=== PATIENT | female | born 2000 | race Caucasian/White ===

== ENCOUNTER 2022-03-20 19:39 | Emergency (ER) | payer OTHER ==
[2022-03-20] MEDS ORDERED: DIPH,PERTUS(ACELL)TETVAC-LF 0.5 ML VIAL IM ONE (19:48)
[2022-03-20] MEDS ORDERED: LIDOCAINE 1% INJ 10MG/ML (30 ML VIAL-PF) SQ ONE (19:48)
--- NOTE | 2022-03-20 19:50 | ED ---
Wound/Laceration HPI - General Chief Complaint: Wound/Laceration Stated Complaint: [facility] LT hand lac Time Seen by Provider: 03/20/22 19:46 Source: patient, RN notes reviewed - History of Present Illness Initial Comments: Patient is a 21-year-old female presenting to the emergency room with left side of her left hand which occurred while she was at work is attempting to add a loop to her belt when the knife slipped slicing her hand. She reports that her tetanus shot is not believed to be up-to-date. She denies any range of motion impairment or concerns for wound contamination. She has past medical history significant for asthma and migraines. - Related Data Previous Rx's Medication Instructions Recorded Cephalexin [Keflex] 500 mg PO Q12HR 5 Days #10 cap 03/20/22 Allergies Allergy/AdvReac Type Severity Reaction Status Date / Time codeine Allergy Rash/Hives Verified 07/29/21 20:12 Review of Systems ROS Statement: Those systems with pertinent positive or pertinent negative responses have been documented in the HPI. ROS Other: All systems not noted in ROS Statement are negative. Past Medical History Past Medical History: Asthma Additional Past Medical History / Comment(s): Migraines History of Any Multi-Drug Resistant Organisms: None Reported Past Surgical History: No Surgical Hx Reported Past Psychological History: Depression Smoking Status: Never smoker Past Alcohol Use History: None Reported Past Drug Use History: None Reported General Exam General appearance: alert, in no apparent distress Head exam: Present: atraumatic, normocephalic, normal inspection Eye exam: Present: normal appearance, PERRL, EOMI. Absent: scleral icterus, conjunctival injection, periorbital swelling ENT exam: Present: normal exam, mucous membranes moist Neck exam: Present: normal inspection Respiratory exam: Absent: respiratory distress, accessory muscle use Cardiovascular Exam: Present: regular rate GI/Abdominal exam: Absent: distended Left Hand Wrist exam: Present: full ROM, tenderness, laceration (lateral aspect mid hand 2 cm ). Absent: ecchymosis, amputation, nail avulsion Vascular: Absent: vascular compromise Back exam: Present: normal inspection Neurological exam: Present: alert, oriented X3, CN II-XII intact Psychiatric exam: Present: normal affect, normal mood Skin exam: Present: warm, dry, intact, normal color. Absent: rash Course Vital Signs 03/20/22 03/20/22 19:47 19:52 Temperature 98.2 F 98.2 F Pulse Rate 89 68 Respiratory 16 16 Rate Blood Pressure 136/88 136/88 O2 Sat by Pulse 98 99 Oximetry Procedures - Laceration Laceration #1 Consent Obtained: verbal consent Indication: laceration Site: hand (left lateral ) Size (cm): 2 Description: linear Depth: simple, single layer Anesthesia Technique: local infiltration Pre-repair: wound explored, irrigated extensively Type of Sutures: nylon Size of Sutures: 4-0 Number of Sutures: 5 Technique: simple, interrupted Patient Tolerated Procedure: well, no complications Medical Decision Making - Medical Decision Making 21-year-old female presenting to the ER after accidentally cutting the lateral aspect of her left hand with a negative. Tetanus not up-to-date will update tetanus. Concern for contamination to knife will need prophylactic antibiotics, no indication for IV antibiotics. No indication for diagnostic imaging or laboratory studies. Laceration closed with sutures without complication. Patient tolerated well. Wound care reviewed. Will discharge home in stable condition with follow-up with her primary care provider for suture removal in 5-7 days. Case discussed with Dr. Aguayo. Disposition Clinical Impression: Laceration Disposition: HOME SELF-CARE Condition: Stable Instructions (If sedation given, give patient instructions): Care For Your Stitches (ED), Laceration (ED) Additional Instructions: Please keep wound clean and dry. Cover if at work or known contamination will occur. Please complete course of antibiotic as prescribed. Monitor for signs and symptoms of infection and seek medical attention as appropriate if symptoms occur. Please follow-up with your primary care provider for suture removal in 5- 7 days. Please return to the Emergency Department if symptoms worsen or any other concerns. Prescriptions: Cephalexin [Keflex] 500 mg PO Q12HR 5 Days #10 cap Is patient prescribed a controlled substance at d/c from ED?: No Referrals: Robin Mckenzie MD [Primary Care Provider] - 1-2 days Time of Disposition: 20:18
[2022-03-20 19:51] VITALS: BP 136/88; RESP 16; TEMP 98.2
[2022-03-20 19:52] VITALS: PULSE 68
[2022-03-20] MEDS ORDERED: ONDANSETRON 4 MG TAB PO STA (20:26)
== END 2022-03-20 20:28 | disposition home or self-care (01) ==
LOC: EC 19:39
DX: S61.412A Laceration without foreign body of left hand, initial encounter (principal); J45.909 Unspecified asthma, uncomplicated; F32.A Depression, unspecified; Z88.5 Allergy status to narcotic agent; X58.XXXA Exposure to other specified factors, initial encounter
CPT/HCPCS: 99282; 96372; 99283; 90715; 90471; 12001; J2001

== ENCOUNTER 2024-04-11 17:54 | Emergency (ER) | payer OTHER ==
--- NOTE | 2024-04-11 18:44 | XR ---
EXAMINATION TYPE: XR lumbar spine 2 or 3V DATE OF EXAM: 04/11/2024 CLINICAL HISTORY: Back pain with radiculopathy TECHNIQUE: Frontal and lateral images of the lumbar spine are obtained. COMPARISON: None FINDINGS: There are 5 lumbar type vertebral bodies identified. The lumbar spine shows satisfactory alignment without evidence of acute fracture or dislocation. Vertebral body heights and disk space he ights are within normal limits. The overlying soft tissue appears unremarkable. IMPRESSION: No acute findings are seen in the lumbar spine. [facility], , 04/11/2024 6:42 PM
--- NOTE | 2024-04-11 18:45 | XR ---
EXAMINATION TYPE: XR thoracic spine 2V DATE OF EXAM: 04/11/2024 CLINICAL HISTORY: Back pain with radiculopathy TECHNIQUE: Frontal, lateral, and swimmer's view of thoracic spine are obtained. COMPARISON: None. FINDINGS: Thoracic spine show satisfactory alignment without evidence of acute fracture or dislocatio n. Vertebral body heights and disc space heights are preserved. Visualized ribs are intact bilateral ly. IMPRESSION: No acute findings are seen in the thoracic spine. [facility], , 04/11/2024 6:43 PM
--- NOTE | 2024-04-11 18:48 | ED ---
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 Patient describes pain as sharp and constant that is worse with movement and sitting. Patient endorses associated nausea. Denies saddle paresthesia or urinary incontinence/retention. MD Complaint: back pain Onset/Timin -: minutes(s) Similar Symptoms Previously: No Place: work Radiation: buttocks, right leg Severity scale (1-10): 7 Quality: sharp Consistency: constant Improves With: immobilization Worsens With: movement, sitting upright Context: while lifting, bending Associated Symptoms: nausea/vomiting - Related Data Previous Rx's Medication Instructions Recorded Cephalexin [Keflex] 500 mg PO Q12HR 5 Days #10 cap 03/20/22 Cyclobenzaprine [Flexeril] 10 mg PO TID PRN #15 tab 04/11/24 Ibuprofen [Motrin] 800 mg PO Q8H PRN #30 tab 04/11/24 Allergies Allergy/AdvReac Type Severity Reaction Status Date / Time codeine Allergy Rash/Hives Verified 04/11/24 18:05 Review of Systems ROS Statement: Those systems with pertinent positive or pertinent negative responses have been documented in the HPI. ROS Other: All systems not noted in ROS Statement are negative. Past Medical History Past Medical History: Asthma Additional Past Medical History / Comment(s): Migraines History of Any Multi-Drug Resistant Organisms: None Reported Past Surgical History: No Surgical Hx Reported Past Psychological History: Depression Smoking Status: Never smoker Past Alcohol Use History: Rare Past Drug Use History: None Reported General Exam Limitations: no limitations General appearance: alert, in no apparent distress Head exam: Present: atraumatic, normocephalic, normal inspection Eye exam: Present: normal appearance, PERRL, EOMI. Absent: scleral icterus, conjunctival injection, periorbital swelling ENT exam: Present: normal exam, mucous membranes moist Neck exam: Present: normal inspection. Absent: tenderness, meningismus, lymphadenopathy Respiratory exam: Present: normal lung sounds bilaterally. Absent: respiratory distress, wheezes, rales, rhonchi, stridor Cardiovascular Exam: Present: regular rate, normal rhythm, normal heart sounds. Absent: systolic murmur, diastolic murmur, rubs, gallop, clicks GI/Abdominal exam: Present: soft, normal bowel sounds. Absent: distended, tenderness, guarding, rebound, rigid Extremities exam: Present: normal inspection, full ROM, normal capillary refill, other (RLE neuro vascular intact motor function intact). Absent: pedal edema, joint swelling, calf tenderness Back exam: Present: normal inspection, paraspinal tenderness (Positive right paralumbar tenderness and muscle spasm). Absent: vertebral tenderness Neurological exam: Present: alert, oriented X3, CN II-XII intact Psychiatric exam: Present: normal affect, normal mood Skin exam: Present: warm, dry, intact, normal color. Absent: rash Course Vital Signs 04/11/24 04/11/24 17:59 19:37 Temperature 98.3 F 98.0 F Pulse Rate 96 81 Respiratory 20 18 Rate Blood Pressure 137/101 122/87 O2 Sat by Pulse 98 98 Oximetry Medical Decision Making - Medical Decision Making Was pt. sent in by a medical professional or institution (, PA, DATASTAGE ARCHITECT, urgent care, hospital, or care home...) When possible be specific @ -No Did you speak to anyone other than the patient for history (EMS, parent, family, police, friend...)? What history was obtained from this source @ -No Did you review nursing and triage notes (agree or disagree)? Why? @ -I reviewed and agree with nursing and triage notes Were old charts reviewed (outside hosp., previous admission, EMS record, old EKG, old radiological studies, urgent care reports/EKG's, care home records)? Report findings @ -No old charts were reviewed Differential Diagnosis (chest pain, altered mental status, abdominal pain women, abdominal pain men, vaginal bleeding, weakness, fever, dyspnea, syncope, headache, dizziness, GI bleed, back pain, seizure, CVA, palpatations, mental health, musculoskeletal)? @ -Differential Back Pain: Strain, zoster, cauda equina syndrome, epidural abscess, vertebral osteomyelitis, discitis, fracture, subluxation, disc herniation, DJD, spinal stenosis, dissection, AAA, pancreatitis, peptic ulcer disease, pyelonephritis, kidney stone, this is not meant to be an all-inclusive list. EKG interpreted by me (3pts min.). @ -Not done X-rays interpreted by me (1pt min.). @ -Thoracolumbar x-ray shows no acute findings. CT interpreted by me (1pt min.). @ -None done U/S interpreted by me (1pt. min.). @ -None done What testing was considered but not performed or refused? (CT, X-rays, U/S, labs)? Why? @ -None What meds were considered but not given or refused? Why? @ -None Did you discuss the management of the patient with other professionals (professionals i.e. , PA, DATASTAGE ARCHITECT, lab, RT, psych nurse, social media senior associate, military lawyer, teacher, commanding officer garage, disease case manager rn)? Give summary @ -No Was smoking cessation discussed for >3mins.? @ -No Was critical care preformed (if so, how long)? @ -No Were there social determinants of health that impacted care today? How? (Homelessness, low income, unemployed, alcoholism, drug addiction, transportation, low edu. Level, literacy, decrease access to med. care, penitentiary, rehab)? @ -No Was there de-escalation of care discussed even if they declined (Discuss DNR or withdrawal of care, Hospice)? DNR status @ -No What co-morbidities impacted this encounter? (DM, HTN, Smoking, COPD, CAD, Cancer, CVA, ARF, Chemo, Hep., AIDS, mental health diagnosis, sleep apnea, morbid obesity)? @ -None Was patient admitted / discharged? Hospital course, mention meds given and route, prescriptions, significant lab abnormalities, going to OR and other pertinent info. @ -Thoracolumbar x-ray shows no acute findings. Patient given IV Toradol, Norflex and Zofran. Motrin 800 and Flexeril sent to pharmacy. Advised heating pad/warm compress for 10 minutes up to 4 times daily. Undiagnosed new problem with uncertain prognosis? @ -No Drug Therapy requiring intensive monitoring for toxicity (Heparin, Nitro, Insulin, Cardizem)? @ -No Were any procedures done? @ -No Diagnosis/symptom? @ -Sciatica Acute, or Chronic, or Acute on Chronic? @ -Acute Uncomplicated (without systemic symptoms) or Complicated (systemic symptoms)? @ -Uncomplicated Side effects of treatment? @ -No Exacerbation, Progression, or Severe Exacerbation? @ -No Poses a threat to life or bodily function? How? (Chest pain, [place], PR, pneumonia, PE, COPD, DKA, ARF, appy, cholecystitis, CVA, Diverticulitis, Homicidal, Suicidal, threat to staff... and all critical care pts) @ -No Disposition Clinical Impression: Sciatica, Strain of lumbar region Disposition: HOME SELF-CARE Condition: Good Instructions (If sedation given, give patient instructions): Sciatica (ED), Acute Low Back Pain (ED) Prescriptions: Cyclobenzaprine [Flexeril] 10 mg PO TID PRN #15 tab PRN Reason: Spasms Ibuprofen [Motrin] 800 mg PO Q8H PRN #30 tab PRN Reason: Pain Is patient prescribed a controlled substance at d/c from ED?: No Referrals: Robin Mckenzie MD [Primary Care Provider] - 1-2 days Time of Disposition: 18:48
[2024-04-11] MEDS: ONDANSETRON 4 MG/2 ML VIAL IVP STA (18:50)
[2024-04-11] MEDS: ORPHENADRINE 30 MG/ML 2 ML VIAL IVP STA (18:51)
[2024-04-11] MEDS: KETOROLAC 15 MG/ML 1 ML VIAL IVP STA (18:51)
[2024-04-11 19:38] VITALS: BP 122/87; PULSE 81; RESP 18; TEMP 98
== END 2024-04-11 19:39 | disposition home or self-care (01) ==
LOC: EC 17:54
DX: S39.012A Strain of muscle, fascia and tendon of lower back, initial encounter (principal); M54.40 Lumbago with sciatica, unspecified side; Z88.5 Allergy status to narcotic agent; X50.1XXA Overexertion from prolonged static or awkward postures, initial encounter
CPT/HCPCS: 72070; 72100; 96374; 96375; 99283